=== PATIENT | male | born 1965 | race Caucasian/White ===

== ENCOUNTER 2018-12-08 09:56 | Observation (INO) ==
[2018-12-08] MEDS ORDERED: Aspirin 325 MG TABLET PO ONE (10:12)
--- NOTE | 2018-12-08 10:13 | Emergency Department Note ---
Disposition Clinical Impression: Chest pain Qualifiers: Chest pain type: unspecified Qualified Code(s): R07.9 - Chest pain, unspecified Disposition: Admitted As Inpatient Condition: Good Referrals: Mariela Mercer [Primary Care Provider] - Forms: ED Satisfaction Letter Time of Disposition: 11:20 General Adult HPI - General Chief complaint: ED Chest Pain Stated complaint: CP x 1 week Time Seen by Provider: 12/08/18 10:02 Source: patient Nursing Notes Reviewed: Yes Vital Signs Reviewed: Yes - History of Present Illness HPI Narrative: Male patient presenting to the ED with a one-week history of left-sided chest pain. States it is intermittent. He noticed that he woke up with that approximately a week ago. Describes as left-sided chest pain that radiates to his left shoulder and then down his left arm occasionally. No history of any cardiac issues previously. He is a smoker. He reports he is also had increased fatigue as well as dyspnea on exertion. No history of DVT or PE. He reports that he is not short of breath at rest. He describes the pain as decreased currently however when he woke up with this morning with it he was very concerned taken to the ED. He states that yesterday was the most significant pain that he has had. He is unable to describe if it is sharp or dull or aching he states it is just on the left side of his chest. Is also been in the center area. Patient does have a history of Crohn's and currently takes pain medication for this. He also discusses that he generally drinks 4-5 beers a night after dinner. States that he is never went through withdrawals previously. He has had periods where he is stop drinking all this is been a significantly long time. Pain Scale: 5 - Related Data Allergies Allergy/AdvReac Type Severity Reaction Status Date / Time No Known Allergies Allergy Verified 12/08/18 10:41 All systems ED: reviewed and negative except as stated. Review of Systems: As Per HPI Constitutional: Denies: fever ENT ED: Denies: congestion Cardiovascular: Reports: chest pain, dyspnea on exertion. Denies: palpitations, syncope Respiratory: Denies: cough, dyspnea Gastrointestinal: Denies: abdominal pain, nausea, vomiting, diarrhea Musculoskeletal: Reports: back pain (reports a chronic left sided back pain that is in his lower back but not present at this time. ) Integumentary: Denies: rash Past Medical History - Past Medical History Attestation: Yes The following information was validated with the patient. Source: patient Medical history: Reports: arthritis - Social History Smoking Status: Current every day smoker Smokeless Tobacco Status: No Alcohol use: Reports: occasionally Physical Exam - General Limitations: no limitations General appearance: alert, in no apparent distress - Head Head exam: atraumatic, normocephalic, normal inspection - Eye Eye exam: Present: normal appearance, PERRL, EOMI - ENT ENT exam: normal exam, normal oropharynx, mucous membranes moist - Neck Neck exam: Present: normal inspection, full ROM, trachea midline - Chest Chest inspection: Present: normal inspection, symmetric chest wall rise - Respiratory Respiratory exam: Present: normal lung sounds bilaterally. Absent: respiratory distress, accessory muscle use - Cardiovascular Cardiovascular exam: Present: regular rate, normal rhythm, normal heart sounds - Abdominal Exam Abdominal exam: Present: soft, Non-Tender. Absent: tenderness, distention, guarding, rebound, rigidity - Extremities Exam Extremities exam: Present: normal inspection, full ROM, normal capillary refill. Absent: tenderness, pedal edema - Back Exam Back exam: Present: normal inspection, full ROM. Absent: tenderness - Neurological Exam Neurological exam: Present: alert, oriented X3 - Psychiatric Psychiatric exam: Present: normal affect, normal mood - Skin Skin exam: Present: warm, dry, intact, normal color Course Course Narrative: Male patient with no cardiac history for himself but is a smoker with left-sided chest pain intermittently for a week. Presenting with left-sided chest pain. Patient also reports significant alcohol use in the evening time daily. We will get a cardiac workup on the patient inclusive of an EKG chest x-ray basic labs. We will provide him with aspirin and nitroglycerin. - Reevaluation(s) Reevaluation #1: Patient states he got a significant relief of the pain with one nitroglycerin. However he states the pain is still there he describes it as a gagging sensation. We will try another nitroglycerin at this time and admit to the hospital for continued chest pain. Time: 11:28 - Consultations Consultation #1: Dr Carreon accepted Pt in stable condition. Time: 11:34 Vital Signs Temperature 98.2 F 12/08/18 10:04 Pulse Rate 77 12/08/18 10:04 Respiratory Rate 18 12/08/18 10:04 Blood Pressure 167/102 12/08/18 10:04 O2 Sat by Pulse Oximetry 100 12/08/18 10:04 Temperature 98.2 F 12/08/18 10:04 Pulse Rate 75 12/08/18 10:45 Respiratory Rate 18 12/08/18 10:04 Blood Pressure 141/95 12/08/18 10:45 O2 Sat by Pulse Oximetry 96 12/08/18 10:45 Oxygen Delivery Oxygen Delivery Room Air Medical Decision Making - Medical Records Medical records reviewed: Yes I reviewed the patient's medical records. - Lab Data Lab results reviewed: Yes I reviewed the patient's lab results. Result diagrams: 12/08/18 10:30 12/08/18 10:30 Lab Results 12/08/18 12/08/18 Range/Units 10:30 10:30 WBC 10.5 (4.3-11.1) K/mcL RBC 4.99 (4.19-5.50) M/mcL Hgb 15.0 (12.9-16.9) g/dL Hct 45.3 (37.5-50.1) % MCV 90.8 (83.0-100.0) fL MCH 30.1 (28.0-33.3) pg MCHC 33.1 (31.6-35.5) g/dL RDW 13.3 (11.5-14.5) % Plt Count 295 (140-400) K/mcL MPV 9.7 (9.4-12.4) fL Immature Gran % 0.4 (0-4) % Seg Neutrophils % 35.4 % Lymphocytes % 51.6 % Monocytes % 8.9 % Eosinophils % 3.0 % Basophils % 0.7 % Neutrophils # 3.7 (1.6-8.9) K/mcL Lymphocytes # 5.4 H (0.6-4.6) K/mcL Monocytes # 0.9 (0.0-1.3) K/mcL Eosinophils # 0.3 (0.0-0.6) K/mcL Basophils # 0.1 (0.0-0.2) K/mcL Sodium 135 L (136-145) mEq/L Potassium 4.4 (3.5-5.1) mEq/L Chloride 103 (98-107) mEq/L Carbon Dioxide 27 (23-29) mEq/L BUN 15 (6-20) mg/dL Creatinine 0.87 (0.70-1.30) mg/dL Est GFR ( Amer) > 60 (> 60) Est GFR (Non-Af Amer) > 60 (> 60) BUN/Creatinine Ratio 17 (6-26) Glucose 109 H (70-105) mg/dL Calculated Osmolality 281 (280-300) Calcium 9.7 (8.6-10.3) mg/dL Troponin I < 0.03 (< 0.04) ng/mL - Radiology Data Radiology results reviewed: Yes I reviewed the patient's radiology results. Chest X-Ray 12/08/18 10:03 IMPRESSION: No acute findings D/ / Aleah Silva MD / Aleah Silva MD Interpreting Provider: Aleah Silva MD - EKG Data EKG #1 EKG attestation: Yes I reviewed and interpreted this EKG. EKG results narrative: Normal sinus rhythm at a rate of 80. MS interval is 132. QRS duration is 99. QT is 365. QTC is 421. No signs of acute ischemia.NO signs of WPW or brugada. Attestation Statement - Attestation Attestation: I, Elie Yuen DO, examined this patient [id number] and my medical decision-making was reviewed with Dr. Alexandria Garrett, Resident Physician. I agree with the documented findings, disposition and treatment plan as described except to the extent set forth below. Please see my progress notes for details.
[2018-12-08 10:40] LABS: Basophils # 0.1 K/mcL (0.0-0.2); Basophils % 0.7 %; Eosinophils # 0.3 K/mcL (0.0-0.6); Hematocrit 45.3 % (37.5-50.1); Immature Granulocytes % 0.4 % (0-4); Lymphocytes # 5.4 K/mcL (0.6-4.6); Lymphocytes % 51.6 %; Mean Corpuscular HGB Conc 33.1 g/dL (31.6-35.5); Mean Corpuscular Hemoglobin 30.1 pg (28.0-33.3); Mean Corpuscular Volume 90.8 fL (83.0-100.0); Mean Platelet Volume 9.7 fL (9.4-12.4); Monocytes # 0.9 K/mcL (0.0-1.3); Monocytes % 8.9 %; Neutrophils # 3.7 K/mcL (1.6-8.9); Platelet Count 295 K/mcL (140-400); Red Blood Count 4.99 M/mcL (4.19-5.50); Red Cell Distribution Width 13.3 % (11.5-14.5); Segmented Neutrophils % 35.4 %
[2018-12-08] MEDS: Nitroglycerin 0.4 MG TAB.SUBL SL PRN ×3 (10:42→11:37)
[2018-12-08 11:00] LABS: BUN/Creatinine Ratio 17 (6-26); Blood Urea Nitrogen 15 mg/dL (6-20); Calcium 9.7 mg/dL (8.6-10.3); Carbon Dioxide 27 mEq/L (23-29); Chloride 103 mEq/L (98-107); Glucose 109 mg/dL (70-105); Osmolality,Calculated 281 (280-300); Potassium 4.4 mEq/L (3.5-5.1); Sodium 135 mEq/L (136-145); Troponin I < 0.03 ng/mL (< 0.04); eGFR For Non-African Americans > 60 (> 60)
--- NOTE | 2018-12-08 11:09 | Emergency Department Note ---
Disposition Clinical Impression: Chest pain Qualifiers: Chest pain type: unspecified Qualified Code(s): R07.9 - Chest pain, unspecified Disposition: Admitted As Inpatient Condition: Fair Referrals: Mariela Mercer [Primary Care Provider] - Forms: ED Satisfaction Letter Time of Disposition: 11:50 General Adult HPI - General Chief complaint: ED Chest Pain Stated complaint: CP x 1 week Time Seen by Provider: 12/08/18 10:02 Source: patient Limitations: no limitations - History of Present Illness Pain Scale: 5 - Related Data Allergies Allergy/AdvReac Type Severity Reaction Status Date / Time No Known Allergies Allergy Verified 12/08/18 10:41 Constitutional: Denies: fever ENT ED: Denies: congestion Cardiovascular: Reports: chest pain, dyspnea on exertion. Denies: palpitations, syncope Respiratory: Denies: cough, dyspnea Gastrointestinal: Denies: abdominal pain, nausea, vomiting, diarrhea Musculoskeletal: Reports: back pain (reports a chronic left sided back pain that is in his lower back but not present at this time. ) Integumentary: Denies: rash Past Medical History - Past Medical History Medical history: Reports: arthritis - Social History Smoking Status: Current every day smoker Smokeless Tobacco Status: No Alcohol use: Reports: occasionally Physical Exam - General Limitations: no limitations General appearance: alert, in no apparent distress Course Vital Signs Temperature 98.2 F 12/08/18 10:04 Pulse Rate 77 12/08/18 10:04 Respiratory Rate 18 12/08/18 10:04 Blood Pressure 167/102 12/08/18 10:04 O2 Sat by Pulse Oximetry 100 12/08/18 10:04 Temperature 98.2 F 12/08/18 10:04 Pulse Rate 75 12/08/18 11:40 Respiratory Rate 18 12/08/18 10:04 Blood Pressure 129/88 12/08/18 11:40 O2 Sat by Pulse Oximetry 96 12/08/18 11:40 Oxygen Delivery Oxygen Delivery Room Air Medical Decision Making - Lab Data Result diagrams: 12/08/18 10:30 12/08/18 10:30 Lab Results 12/08/18 12/08/18 Range/Units 10:30 10:30 WBC 10.5 (4.3-11.1) K/mcL RBC 4.99 (4.19-5.50) M/mcL Hgb 15.0 (12.9-16.9) g/dL Hct 45.3 (37.5-50.1) % MCV 90.8 (83.0-100.0) fL MCH 30.1 (28.0-33.3) pg MCHC 33.1 (31.6-35.5) g/dL RDW 13.3 (11.5-14.5) % Plt Count 295 (140-400) K/mcL MPV 9.7 (9.4-12.4) fL Immature Gran % 0.4 (0-4) % Seg Neutrophils % 35.4 % Lymphocytes % 51.6 % Monocytes % 8.9 % Eosinophils % 3.0 % Basophils % 0.7 % Neutrophils # 3.7 (1.6-8.9) K/mcL Lymphocytes # 5.4 H (0.6-4.6) K/mcL Monocytes # 0.9 (0.0-1.3) K/mcL Eosinophils # 0.3 (0.0-0.6) K/mcL Basophils # 0.1 (0.0-0.2) K/mcL Sodium 135 L (136-145) mEq/L Potassium 4.4 (3.5-5.1) mEq/L Chloride 103 (98-107) mEq/L Carbon Dioxide 27 (23-29) mEq/L BUN 15 (6-20) mg/dL Creatinine 0.87 (0.70-1.30) mg/dL Est GFR ( Amer) > 60 (> 60) Est GFR (Non-Af Amer) > 60 (> 60) BUN/Creatinine Ratio 17 (6-26) Glucose 109 H (70-105) mg/dL Calculated Osmolality 281 (280-300) Calcium 9.7 (8.6-10.3) mg/dL Troponin I < 0.03 (< 0.04) ng/mL Attestation Statement - Attestation Attestation: I, Elie Yuen DO, examined this patient [id number] and my medical decision-making was reviewed with Dr. Alexandria Garrett Resident Physician. I agree with the documented findings, disposition and treatment plan as described except to the extent set forth below. Please see my progress notes for details. 53-year-old male presents emergency room with approximately 1 week worth of intermittent chest discomfort and pain. Patient does have Crohn's disease and takes immunosuppression medication as well as pain medication daily. He denies any recent illnesses. Currently denying fevers or chills. Denies any nausea vomiting or changes in his bowel habits. Denies any fevers or chills. Denies any headache or vision change. He does not have any shortness of breath but still is complaining of intermittent chest discomfort and pain. He does still have a light pressure-like sensation in his chest wall. Patient will have cardiac evaluation so this time. He does have risk factors including smoking. He denies any productive cough or sputum. He also is concerned about possible lung cancer considering a friend of his had similar symptoms caused him to be diagnosed with lung cancer that time. EKG, CBC, chemistry, troponin, urinalysis, chest x-ray will be completed and established. Aspirin and nitroglycerin will be given. Disposition pending full workup and treatment course. Patient will most likely require admission for symptomatic control and evaluation. See detailed documentation the physical exam, medical intervention, medical decision-making and disposition in the resident physician's note. No critical care provider the patient's treatment course at this time. 1135 Patient has no chest pain at this time after 2 nitroglycerin. Troponin is negative. Labs are otherwise unremarkable. Patient was discussed with the hospitalist Dr. Ricketts. No other recommendations or concerns at this time. Aspirin has been given. Patient's symptoms are concerning for ACS despite the fact of the timeframe and negative troponin. Patient will be admitted for observation cardiac evaluation and definitive management. Patient is otherwise clinically stable. No other acute intervention required at this time. Patient will be monitored here in the emergency department to the admission process is completed.
[2018-12-08] MEDS ORDERED: Naloxone 0.4 MG/ML INJ IVP PRN (11:37)
[2018-12-08] MEDS ORDERED: *HR* OxyCODONE/APAP 5/325 TABLET PO PRN (12:30)
--- NOTE | 2018-12-08 12:36 | Internal Med History&Physical ---
Date of Encounter: 12/08/18 Time of Encounter: 12:30 Internal Medicine - H&P: HPI Chief complaint: Chest pain for a couple of days History of present illness: Mr. Reynolds is a 53 year old male with pmh of crohn's disease presenting with complaints of chest pain of a couple of days duration getting worse in the last 24hrs. Patient says the pain is left sided and radiates to his left shoulder and his back. He endorses tobacco abuse. He has also been experiencing some shor tness of breath and occasional nausea with the chest pain. He denies any fevers or chills or abdominal pain or any other acute symptoms. He takes mesalamine and percocet at home for Crohn's disease. In the ER, pain was relieved by nitroglycerin, and troponins were negative. He is being admitted to rule out ACS Past Med Surg Social Fam HX - Past Medical History Medical history: arthritis Additional medical history: Crohns - Social History Smoking Status: Current every day smoker Smokeless Tobacco Status: No Alcohol use: occasionally Internal Medicine - H&P: Meds Allergy/AdvReac Type Severity Reaction Status Date / Time No Known Allergies Allergy Verified 12/08/18 10:41 All Systems PM: A 10-system review of systems was performed and is negative for pertinent findings except as documented above in the HPI. - Constitutional Constitutional: no chills, no fever(s), no night sweats - EENT Eyes: no change in vision, no discharge, no pain, no photophobia Ears: no ear discharge, no ear pain, no tinnitus Nose, mouth and throat: no dysphagia, no nasal discharge, no neck pain, no sore throat - Cardiovascular Cardiovascular ROS IM: chest pain, dyspnea, no diaphoresis, no lightheadedness, no palpitations, no syncope - Respiratory Respiratory: no cough, no dyspnea, no wheezing, no excessive phlegm production - Gastrointestinal Gastrointestinal: no abdominal pain, no diarrhea, no hematemesis, no hematochezia, no melena, no nausea, no vomiting - Musculoskeletal Musculoskeletal ROS IM: no numbness, no tingling - Integumentary Integumentary IM: no rash, no unusual bruising - Neurological Neurological ROS: no confusion, no convulsions, no focal weakness, no numbness, no tingling, no tremor(s) - Hematologic/Lymphatic Hematologic/Lymphatic: no easy bruising - Constitutional Vitals: Temp Pulse Resp BP Pulse Ox 98.2 F 75 18 129/88 96 12/08/18 10:04 12/08/18 11:40 12/08/18 10:04 12/08/18 11:40 12/08/18 11:40 Exam: NAD - Head Head exam: Present: atraumatic, normocephalic - Eye Eye exam: Present: PERRL, conjuntiva pink, sclera anicteric Pupils: Present: PERRL - Neck Neck exam general surgery: Present: supple, trachea midline. Absent: lymphadenopathy - Respiratory Respiratory exam: Present: CTAB. Absent: accessory muscle use, rales, rhonchi, wheezes - Cardiovascular Cardiovascular exam: Present: RRR, +S1, +S2. Absent: diastolic murmur, gallop, rubs, systolic murmur - GI/Abdominal GI/Abdominal exam: Present: normal bowel sounds, soft, no peritoneal signs. Absent: distended, tenderness - Extremities Exam Extremities exam: Present: warm, radial pulses palpable and symmetrical. Absent: calf tenderness, cyanotic, pedal edema - Neurological Exam Neurological exam: Present: CN II-XII intact, oriented X3, no focal deficits. Absent: pronater drift, facial droop, speech deficit - Skin Skin exam: Present: dry, intact Internal Med - H&P Results - Labs CBC & Chem 7: 12/08/18 10:30 12/08/18 10:30 Labs: Short CBC 12/08/18 Range/Units 10:30 WBC 10.5 (4.3-11.1) K/mcL Hgb 15.0 (12.9-16.9) g/dL Hct 45.3 (37.5-50.1) % Plt Count 295 (140-400) K/mcL Neutrophils # 3.7 (1.6-8.9) K/mcL BMP 12/08/18 10:30 Sodium 135 L Potassium 4.4 Chloride 103 Carbon Dioxide 27 BUN 15 Creatinine 0.87 Glucose 109 H Calcium 9.7 Cardiac Enzymes 12/08/18 Range/Units 10:30 Troponin I < 0.03 (< 0.04) ng/mL - Impressions ITS Impressions Chest X-Ray 12/08/18 10:03 IMPRESSION: No acute findings D/ / Aleah Silva MD / Aleah Silva MD Interpreting Provider: Aleah Silva MD - Assessment and plan (1) Chest pain Current Visit: Yes Status: Acute Assessment and plan: Pt comes in with left sided chest pain for 1 week , that got worse in the last 24hrs Has risk facotrs for CAD including age, tobacco abuse. Will start on aspirin and statin Obtain 2D echo and nuclear stress test, trend troponins Qualifiers: Chest pain type: unspecified Qualified Code(s): R07.9 - Chest pain, unspecified (2) Crohn disease Current Visit: Yes Status: Acute Assessment and plan: No acute exacerbation. continue mesalamine and percocet prn Qualifiers: Qualified Code(s): K50.90 - Crohn's disease, unspecified, without complications (3) Tobacco abuse Current Visit: Yes Status: Acute Assessment and plan: Counseled (4) DVT prophylaxis Current Visit: Yes Status: Acute Assessment and plan: Heparin sc - Time Spent With Patient Total time spent is greater than 50% in coordination of care (as documented) at patient's floor/unit and/or counseling patient:
[2018-12-08] MEDS ORDERED: *HR* LORazepam 2 MG/ML VIAL IVP PRN ×3 (14:05)
[2018-12-08] MEDS ORDERED: *HR* Promethazine 25 MG/ML VIAL IVP PRN (14:05)
[2018-12-08] MEDS ORDERED: Nicotine 14 MG PATCH.TD24 TD SCH (14:15)
--- NOTE | 2018-12-08 14:56 | Discharge Summary ---
- NOTES TO OUTPATIENT PROVIDER Notes to Outpatient Provider: Follow up with cardiology for stress test Orders not resulted at time of discharge: Pending orders 12/08/18 10:03 ECG 12 lead ECG [ECG] Stat 12/08/18 11:39 EV echocardiogram Routine SP pharm nuclear stress Routine 12/08/18 11:40 NM park perf SPECT multi [NM] Routine 12/08/18 14:42 Troponin I Q6H 12/08/18 17:45 Troponin I Q6H 12/08/18 23:45 Troponin I Q6H 12/09/18 04:00 Basic Metabolic Panel AM 0400 Complete Blood Count [HEME] AM 0400 Lipid Panel AM 0400 Magnesium AM 0400 Phosphorous AM 0400 Date of Encounter: 12/08/18 Time of Encounter: 16:30 - Discharge Diagnosis (1) Chest pain Priority: Primary Status: Acute Assessment and Plan: 53 year old male with pmh of crohn's disease presenting with complaints of chest pain of a couple of days duration getting worse in the last 24hrs. Patient says the pain is left sided and radiates to his left shoulder and his back. He endorses tobacco abuse. He has also been experiencing some shortness of breath and occasional nausea with the chest pain. He denies any fevers or chills or abdominal pain or any other acute symptoms. He takes mesalamine and percocet at home for Crohn's disease. In the ER, pain was relieved by nitroglycerin, and troponins were negative. He was admitted for with left sided chest pain for 1 week , that got worse in the last 24hrs. He Has risk facotrs for CAD including age, tobacco abuse. Two sets of troponins came back negative and his echo was normal. Patient was scheduled for a stress test but received the unfortunate news that his nephew was found , and he requested to be discharged and complete his tests as an outpatient. He was discharged on aspirin and statin and counseled to follow up with cardiology Qualifiers: Chest pain type: unspecified Qualified Code(s): R07.9 - Chest pain, unspecified (2) Crohn disease Priority: Primary Status: Acute Qualifiers: Qualified Code(s): K50.90 - Crohn's disease, unspecified, without complications (3) Tobacco abuse Priority: Primary Status: Acute (4) DVT prophylaxis Priority: Primary Status: Acute Hospital course: Mr. Reynolds is a 53 year old male - Time Spent with Patient Total time spent providing and/or coordinating discharge services: - Discharge Medications Prescriptions: Nitroglycerin 0.4 mg SL Q5MIN PRN #30 tab.subl PRN Reason: Chest Pain Aspirin 81 mg PO DAILY #30 tab.chew Atorvastatin [Lipitor] 40 mg PO HS #30 tablet Home Medications: Aspirin 81 mg PO DAILY #30 tab.chew 12/08/18 [Rx] Atorvastatin [Lipitor] 40 mg PO HS #30 tablet 12/08/18 [Rx] Nitroglycerin 0.4 mg SL Q5MIN PRN #30 tab.subl 12/08/18 [Rx] Allergies/Adverse Reactions: Allergy/AdvReac Type Severity Reaction Status Date / Time No Known Allergies Allergy Verified 12/08/18 10:41 Date of admission: 12/08/18 12:00 Primary care physician: Mariela Mercer Consults: 12/08/18 14:05 Consult to Ultrasonic Tester [CONS] Routine Reason for SW Consult: alcohol use - Constitutional Vitals: Temp Pulse Resp BP Pulse Ox 98.2 F 75 18 129/88 96 12/08/18 10:04 12/08/18 11:40 12/08/18 10:04 12/08/18 11:40 12/08/18 11:40 Exam: NAD - Patient Status Disposition: Home, Self-Care Condition: Good - Discharge Instructions Instructions: Nitroglycerin (By mouth), Aspirin (By mouth), Atorvastatin (By mouth), Chest Pain (DC) Follow Up With: [facility] [Provider Group] (An appointment has been web requested. Office will contact you with an appt. ) Mariela Mercer [Primary Care Provider] - (Please follow up with primary care provider in 7-10 days.)
[2018-12-08] MEDS ORDERED: *HR* LORazepam 2 MG/ML VIAL IM STA (15:15)
[2018-12-08] MEDS ORDERED: *HR* LORazepam 1 MG TABLET PO ONE (15:15)
[2018-12-08 15:40] VITALS: BP 166/104
[2018-12-09] MEDS ORDERED: Vitamin B Complex/Vit C/Vit E 1 EACH TABLET PO SCH (09:00)
[2018-12-09] MEDS ORDERED: Aspirin 81 MG TAB.CHEW PO SCH (09:00)
[2018-12-09] MEDS ORDERED: Folic Acid 1 MG TABLET PO SCH (09:00)
[2018-12-09] MEDS ORDERED: Thiamine (B-1) 100 MG TABLET PO SCH (09:00)
--- NOTE | 2018-12-11 14:35 | Electrocardiograph Report ---
[address] [address] Test Date: 2018-12-08 Pat Name: Rene Reynolds Department: [id number] Room: [facility] ([place]) Gender: M Environmental Systems Coordinator: : 1965 Requested By: Mary Garrett Order Number: [id number] Reading MD: Yue Chan Measurements Intervals [place] Rate: 80 P: 61 MT: 132 QRS: 89 QRSD: 99 T: 13 QT: 365 QTc: 421 Interpretive Statements Sinus rhythm Electronically Signed On 12-11-2018 14:33:16 EST by Yue Chan
== END 2018-12-08 16:59 | disposition home or self-care (01) ==
LOC: EMEROOARM 09:56 → 3BNU 09:56
PROVIDERS: ADMIT Student in an Organized Health Care Education/Training Program; ATTEND Student in an Organized Health Care Education/Training Program